=== PATIENT | male | born 1990 | race Caucasian/White ===

== ENCOUNTER 2022-02-03 23:35 | Emergency (ER) | payer MEDICAID ==
[~2022-02-03] VITALS: Ht 167.6 cm; Wt 163.3 kg
[2022-02-04] MEDS ORDERED: HYDROCODON-ACE1 EA10 PO (00:55)
== END 2022-02-04 01:18 | disposition home or self-care (01) ==
LOC: ED 23:35 → EDBD 23:36 → ED 02-04 01:18
DX: S29.011A Strain of muscle and tendon of front wall of thorax, initial encounter (principal); I10 Essential (primary) hypertension; E78.00 Pure hypercholesterolemia, unspecified; X50.9XXA Other and unspecified overexertion or strenuous movements or postures, initial encounter
CPT/HCPCS: 71250; 96374; 99283-25; A9270; J2270